=== PATIENT | female | born 1950 | race Caucasian/White ===

== ENCOUNTER 2024-09-02 09:30 | Outpatient (RCR) | payer MEDICARE, BC, SELFPAY | END 2024-12-28 12:53 | disposition home or self-care (01) | PROVIDERS: PCP Family Medicine; Visit Provider Student in an Organized Health Care Education/Training Program | DX: M43.6 Torticollis (principal); Z51.89 Encounter for other specified aftercare | CPT/HCPCS: 97012; 97110; 97112; 97140; 97161 ==

== ENCOUNTER 2025-08-22 11:45 | Outpatient (RCR) | payer MEDICARE, BC, SELFPAY | END 2025-11-09 11:34 | disposition home or self-care (01) | PROVIDERS: PCP Family Medicine; Visit Provider Student in an Organized Health Care Education/Training Program | DX: N39.46 Mixed incontinence (principal); Z51.89 Encounter for other specified aftercare | CPT/HCPCS: 97110; 97112; 97161; 97535 ==